=== PATIENT | male | born 1955 | race Caucasian/White ===

== ENCOUNTER 2022-05-21 07:37 | Emergency (ER) | payer OTHER ==
[2022-05-21] MEDS ORDERED: ACETAMINOPHEN 500 MG TABLET (FP) PO ONE (08:00)
[2022-05-21 08:03] VITALS: BMI 23.8
[2022-05-21 10:04] LABS: BASO % 0.3 % (0-2.0); EOS % 0.2 % (0-4.5); HEMATOCRIT 50.1 % (35.4-49); HEMOGLOBIN 17.5 GM/dL (11.7-16.9); INR 0.93 (0.83-1.09); LYMPH % 11.1 % (8-40); MCH 30.8 pg (25.7-33.7); MCHC 34.9 g/dl (32.0-35.9); MEAN CELL VOLUME 88.3 fl (80-96); MEAN PLT VOLUME 8.6 fl (7.5-11.1); MONO % 4.9 % (3.8-10.2); NEUT % 83.5 % (42.8-82.8); PLATELET COUNT 239 10^3/uL (134-434); PROTHROMBIN TIME (PATIENT) 10.7 SEC (9.7-13.0); RBC 5.68 M/mm3 (4.00-5.60); RDW 13.7 % (11.9-15.9)
[2022-05-21 10:18] LABS: ALBUMIN 4.9 g/dl (3.4-5.0); BLOOD UREA NITROGEN 14.1 mg/dL (7-18); CALCIUM 9.7 mg/dL (8.5-10.1)
[2022-05-21 10:21] LABS: CREATININE 0.9 mg/dL (0.55-1.3)
[2022-05-21 10:23] LABS: TOT PROT 8.3 g/dl (6.4-8.2)
[2022-05-21 10:25] LABS: BILIRUBIN,TOTAL 0.8 mg/dL (0.2-1)
[2022-05-21] MEDS ORDERED: DIPHTH,PERTUSS(ACELL),TET 0.5 ML DISP.SYRIN IM ONE ×2 (11:17→11:22)
[2022-05-21 14:39] VITALS: BP 166/88; PULSE 78; TEMP 98
== END 2022-05-21 14:58 | disposition home or self-care (01) ==
LOC: JER 07:37
PROC: 3E0234Z Introduction of Serum, Toxoid and Vaccine into Muscle, Percutaneous Approach (ICD-10-PCS; principal; 2022-05-21)
DX: R51.9 Headache, unspecified (principal); M54.2 Cervicalgia; M54.6 Pain in thoracic spine; M79.662 Pain in left lower leg; V43.52XA Car driver injured in collision with other type car in traffic accident, initial encounter
CPT/HCPCS: 36415; 70450-TC; 71045-TC-FY; 72125-TC; 74177-TC; 80053; 84484; 85025; 85610; 85730; 90715; 93005; 93010; 99285-25; Q9967